=== PATIENT | male | born 1985 | race Caucasian/White ===

== ENCOUNTER 2017-01-04 09:00 | Emergency (ER) | payer SELFPAY ==
[~2017-01-04] VITALS: Ht 198.1 cm; Wt 88.0 kg
[~2017-01-04 09:00] MED LIST: CIPR500T4 PO; HYDR-3533 PO; METR-1 PO; PROT40TA PO
[2017-01-04 09:06] VITALS: BP 120/68; PULSE 55; RESP 18; TEMP 98.5; O2SAT 99
--- NOTE | 2017-01-04 09:58 | PD ---
HPI Chief Complaint: GI Complaint Time Seen by Provider: 09:29 Travel History International Travel<30 days: No Contact w/Intl Traveler<30days: No Traveled to known affect area: No History of Present Illness HPI This is a 31-year-old male who presents to the emergency department with 4 days of vomiting and diarrhea. He said he had a cook out 5 days ago and the following day he woke up with persistent vomiting and loose stools. He says he' s had intermittent specks of blood in his vomit and he had bloody and dark stools. The symptoms of been constant, severe and as of this morning he couldn' t keep anything down. He denies any fevers or chills. His mom is sick with similar symptoms and is here in the ER as well. He has a History of cholecystectomy in the past. He is describing moderate severity epigastric discomfort. PFSH Past Medical History Anxiety: Yes Cancer: No Cardiovascular Problems: Yes (MURMER) Diminished Hearing: No Endocrine: No Genitourinary: No Immune Disorder: No Musculoskeletal: No Neurologic: No Psychiatric: No Reproductive: No Respiratory: No Ulcer: Yes Past Surgical History Abdominal Surgery: Yes (gall bladder removal Sep 09, 2015) Cardiac Surgery: No Cholecystectomy: Yes Ear Surgery: No Eye Surgery: No Genitourinary Surgery: No Gynecologic Surgery: No Oral Surgery: No Thoracic Surgery: No Other Surgery: Yes Social History Alcohol Use: No Tobacco Use: Yes (1 PK EVERY 3 DAYS) Substance Use: No Allergies-Medications (Allergen,Severity, Reaction): Coded Allergies: Phenergan (Unverified Allergy, Severe, Hives, 01/04/17) Ambien (Verified Adverse Reaction, Severe, PARANOID, 01/04/17) Reported Meds & Prescriptions Reported Meds & Active Scripts Active Zofran (Ondansetron HCl) 4 Mg Tab 4 Mg PO Q6HR PRN Review of Systems Except as stated in HPI: all other systems reviewed are Neg Physical Exam Narrative GENERAL:Well appearing, no acute distress SKIN: Focused skin assessment warm and dry. HEAD: Atraumatic. Normocephalic. EYES: Pupils equal and round. No injection or drainage. ENT: Moist mucous membranes NECK: Trachea midline. CARDIOVASCULAR: Regular rate and rhythm. No murmur appreciated. RESPIRATORY: Clear to auscultation. Breath sounds equal bilaterally. GASTROINTESTINAL: Abdomen soft, tender to palpation in the epigastrium with no rebound or guarding. MUSCULOSKELETAL: No obvious deformities. NEUROLOGICAL: Awake and alert. No obvious cranial nerve deficits. Moving all extremities. PSYCHIATRIC: Appropriate mood and affect; insight and judgment normal. Data Data Last Documented VS Vital Signs Date Time Temp Pulse Resp B/P Pulse Ox O2 Delivery O2 Flow Rate FiO2 01/04/17 09:06 98.5 55 18 120/68 99 Orders Complete Blood Count With Diff (01/04/17 09:54) Comprehensive Metabolic Panel (01/04/17 09:54) ^ Insert Iv (01/04/17 09:54) Sodium Chlor 0.9% 1000 Ml Inj (Ns 1000 M (01/04/17 10:00) Ondansetron Inj (Zofran Inj) (01/04/17 10:00) Ketorolac Inj (Toradol Inj) (01/04/17 10:00) Ondansetron Inj (Zofran Inj) (01/04/17 10:15) Lorazepam Inj (Ativan Inj) (01/04/17 10:30) Lipase (01/04/17 10:22) Electrocardiogram (01/04/17 ) Ct Abd/Pel W Iv Contrast(Rout) (01/04/17 ) Iohexol 350 Inj (Omnipaque 350 Inj) (01/04/17 13:12) Labs Laboratory Tests Test 01/04/17 09:45 White Blood Count 15.1 TH/MM3 Red Blood Count 5.43 MIL/MM3 Hemoglobin 16.2 GM/DL Hematocrit 46.9 % Mean Corpuscular Volume 86.4 FL Mean Corpuscular Hemoglobin 29.9 PG Mean Corpuscular Hemoglobin 34.6 % Concent Red Cell Distribution Width 12.9 % Platelet Count 250 TH/MM3 Mean Platelet Volume 9.6 FL Neutrophils (%) (Auto) 74.3 % Lymphocytes (%) (Auto) 19.5 % Monocytes (%) (Auto) 5.8 % Eosinophils (%) (Auto) 0.1 % Basophils (%) (Auto) 0.3 % Neutrophils # (Auto) 11.2 TH/MM3 Lymphocytes # (Auto) 2.9 TH/MM3 Monocytes # (Auto) 0.9 TH/MM3 Eosinophils # (Auto) 0.0 TH/MM3 Basophils # (Auto) 0.0 TH/MM3 CBC Comment DIFF FINAL Differential Comment Sodium Level 140 MEQ/L Potassium Level 3.3 MEQ/L Chloride Level 100 MEQ/L Carbon Dioxide Level 31.0 MEQ/L Anion Gap 9 MEQ/L Blood Urea Nitrogen 22 MG/DL Creatinine 0.95 MG/DL Estimat Glomerular Filtration 94 ML/MIN Rate Random Glucose 92 MG/DL Calcium Level 9.5 MG/DL Total Bilirubin 1.9 MG/DL Aspartate Amino Transf 14 U/L (AST/SGOT) Alanine Aminotransferase 25 U/L (ALT/SGPT) Alkaline Phosphatase 101 U/L Total Protein 7.8 GM/DL Albumin 4.3 GM/DL Lipase 133 U/L MDM Medical Decision Making Medical Screen Exam Complete: Yes Emergency Medical Condition: Yes Interpretation(s) afebrile, no tachycardia, normotensive leukocytosis 74% neutrophils mild hypokalemia total bilirubin 1.9 similar to prior Differential Diagnosis Gastroenteritis, food poisoning, dehydration, electrolyte abnormality, gastric outlet obstruction, pancreatitis Narrative Course This is a 31-year-old male who presents to the emergency department with nausea vomiting and diarrhea ever since he ate barbecue 5 days ago. Labs were obtained which demonstrate a leukocytosis. Electrolytes are reassuring. CT was obtained given the patient's degree of pain in his leukocytosis. Imaging was unremarkable. I suspect the patient has food poisoning. He was discharged with Zofran. He feels much better after antiemetics and IV hydration. Diagnosis Primary Impression: Food poisoning Qualified Code: T62.94XA - Food poisoning, undetermined intent, initial encounter Patient Instructions: General Instructions Med/Other Pt SpecificInfo: Prescription(s) given Scripts Ondansetron (Zofran)4 Mg Tab4 Mg PO Q6HR PRN (NAUSEA OR VOMITING) #10 TAB Ref 0 Prov:Kiana Ruiz MD 01/04/17 Disposition: DISCHARGE HOME Condition: Stable Kiana Ruiz MD Jan 04, 2017 09:58
[2017-01-04] MEDS ORDERED: SODIUM CHLOR 0.9% 1000 ML INJ 1,000 ML IV ONE (10:00)
[2017-01-04] MEDS ORDERED: KETOROLAC TROMETHAMINE 30 MG/ML (IVP) VIAL IV PUSH ONE (10:00)
[2017-01-04] MEDS ORDERED: ONDANSETRON HCL 4 MG/2 ML VIAL IV PUSH ONE (10:00)
[2017-01-04] MEDS ORDERED: ONDANSETRON HCL 4 MG/2 ML VIAL IV ONE (10:15)
[2017-01-04 10:30] LABS: AUTOMATED NEUTROPHIL # 11.2 TH/MM3 (1.8-7.7); BASOPHIL % 0.3 % (0.0-2.0); EOSINOPHIL % 0.1 % (0.0-4.0); HEMATOCRIT 46.9 % (39.0-51.0); HEMO FLAGS DIFF FINAL; LYMPH % 19.5 % (9.0-44.0); LYMPHOCYTE # 2.9 TH/MM3 (1.0-4.8); MEAN CELL VOLUME 86.4 FL (80.0-100.0); MEAN CORPUSCULAR HEMOGLOBIN 29.9 PG (27.0-34.0); MEAN CORPUSCULAR HGB CONC 34.6 % (32.0-36.0); MONO % 5.8 % (0.0-8.0); NEUT % 74.3 % (16.0-70.0); PLATELET COUNT 250 TH/MM3 (150-450); RED BLOOD COUNT 5.43 MIL/MM3 (4.50-5.90); RED CELL DISTRIBUTION WIDTH 12.9 % (11.6-17.2); WHITE BLOOD COUNT 15.1 TH/MM3 (4.0-11.0)
[2017-01-04] MEDS ORDERED: LORazepam 2 MG/ML VIAL IV PUSH ONE (10:30)
[2017-01-04 10:45] LABS: ALT (GPT) 25 U/L (12-78); ANION GAP 9 MEQ/L (5-15); AST (GOT) 14 U/L (15-37); BLOOD UREA NITROGEN 22 MG/DL (7-18); CHLORIDE 100 MEQ/L (98-107); GLOMERULAR FILTRATION RATE 94 ML/MIN (>89); POTASSIUM 3.3 MEQ/L (3.5-5.1); SODIUM (NA) 140 MEQ/L (136-145)
[2017-01-04 10:48] LABS: ALKALINE PHOSPHATASE 101 U/L (45-117); TOTAL BILIRUBIN ADULT 1.9 MG/DL (0.2-1.0)
--- NOTE | 2017-01-04 11:58 | EKG ---
Date Performed: 01/04/2017 Time Performed: 10:29:44 PTAGE: 31 years EKG: ECTOPIC ATRIAL BRADYCARDIA POSSIBLE RIGHT VENTRICULAR CONDUCTION DELAY ABNORMAL RHYTHM ECG PREVIOUS TRACING : 09/14/2015 16.36 Compared to previous tracing, ectopic atrial bradycardia rojas s replaced Sinus rhythm . DOCTOR: Jian Maya Interpretating Date/Time 01/04/2017 11:58:06
[2017-01-04] MEDS ORDERED: IOHEXOL 350 MG/ML 10 ML VIAL (for RAD DIAG) IV ONE (13:12)
--- NOTE | 2017-01-04 13:38 | RADRPT ---
EXAM DATE/TIME: 01/04/2017 13:08 [facility] COMPARISON: CT ABDOMEN & PELVIS W CONTRAST, November 08, 2015, 20:49. INDICATIONS : Nausea, coffe ground emesis, and diarrhea for 2 days IV CONTRAST: 95 cc Omnipaque 350 (iohexol) IV ORAL CONTRAST: No oral contrast ingested. RADIATION DOSE: 5.59 CTDIvol (mGy) MEDICAL HISTORY : Cardiovascular disease. Ulcers. SURGICAL HISTORY : Cholecystectomy. ENCOUNTER: Initial ACUITY: 2 days PAIN SCALE: 4/10 LOCATION: diffuse abdomen TECHNIQUE: Volumetric scanning of the abdomen and pelvis was performed. Using automated exposure control and ad justment of the mA and/or kV according to patient size, radiation dose was kept as low as reasonably achievable to obtain optimal diagnostic quality images. FINDINGS: LOWER LUNGS: The visualized lower lungs are clear. LIVER: Homogeneous density without lesion. There is no dilation of the biliary tree. Clips are seen from pr ior cholecystectomy. SPLEEN: Normal size without lesion. PANCREAS: Within normal limits. KIDNEYS: Normal in size and shape. There is no mass, stone or hydronephrosis. ADRENAL GLANDS: Within normal limits. VASCULAR: There is no aortic aneurysm. BOWEL/MESENTERY: The stomach, small bowel, and colon demonstrate no acute abnormality. There is no free intraperitone al air or fluid. ABDOMINAL WALL: Within normal limits. RETROPERITONEUM: There is no lymphadenopathy. BLADDER: No wall thickening or mass. REPRODUCTIVE: Within normal limits. INGUINAL: There is no lymphadenopathy or hernia. MUSCULOSKELETAL: Within normal limits for patient age. CONCLUSION: Normal examination. Steve Razo MD on January 04, 2017 at 13:30 Board Certified Radiologist. This report was verified electronically.
[2017-01-04] MEDS ORDERED: ZOFR4TAB PO (14:02)
[2017-01-05] MEDS ORDERED: DICY10 PO (08:35)
== END 2017-01-04 14:47 | disposition home or self-care (01) ==
LOC: NEPE 09:00
DX: T62.94XA Toxic effect of unspecified noxious substance eaten as food, undetermined, initial encounter (principal); D72.829 Elevated white blood cell count, unspecified; E87.6 Hypokalemia; F41.9 Anxiety disorder, unspecified; Z72.0 Tobacco use
CPT/HCPCS: 74177; 80053; 83690; 85025; 93005; 96374; 96375; 99285; J1885; J2405; J7030; Q9967

== ENCOUNTER 2017-01-05 06:31 | Emergency (ER) | payer SELFPAY ==
[~2017-01-05] VITALS: Ht 198.1 cm; Wt 90.0 kg
[~2017-01-05 06:31] MED LIST changes: +ZOFR4TAB PO
[2017-01-05 06:37] VITALS: BP 142/87; PULSE 60; RESP 18; TEMP 98.3; O2SAT 97
[2017-01-05] MEDS ORDERED: SODIUM CHLOR 0.9% 1000 ML INJ 1,000 ML IV SCH (06:44)
[2017-01-05] MEDS ORDERED: PANTOPRAZOLE SODIUM 40 MG VIAL IVP ONE (06:45)
[2017-01-05] MEDS ORDERED: SODIUM CHLORIDE 0.9% FLUSH 10 ML FLUSH IV FLUSH PRN (06:45)
[2017-01-05] MEDS ORDERED: ONDANSETRON HCL 4 MG/2 ML VIAL IVP ONE (06:45)
[2017-01-05 06:52] VITALS: O2SAT 100
[2017-01-05 07:00] LABS: AUTOMATED NEUTROPHIL # 8.5 TH/MM3 (1.8-7.7); BASOPHIL % 0.3 % (0.0-2.0); EOSINOPHIL % 0.4 % (0.0-4.0); HEMATOCRIT 43.4 % (39.0-51.0); HEMO FLAGS DIFF FINAL; MEAN CELL VOLUME 85.6 FL (80.0-100.0); MEAN CORPUSCULAR HEMOGLOBIN 30.4 PG (27.0-34.0); MEAN CORPUSCULAR HGB CONC 35.5 % (32.0-36.0); MONO % 8.1 % (0.0-8.0); NEUT % 67.2 % (16.0-70.0); PLATELET COUNT 233 TH/MM3 (150-450); RED BLOOD COUNT 5.07 MIL/MM3 (4.50-5.90); RED CELL DISTRIBUTION WIDTH 13.1 % (11.6-17.2); WHITE BLOOD COUNT 12.6 TH/MM3 (4.0-11.0)
[2017-01-05 07:17] LABS: ANION GAP 11 MEQ/L (5-15); AST (GOT) 11 U/L (15-37); BICARBONATE 26.3 MEQ/L (21.0-32.0); BLOOD UREA NITROGEN 16 MG/DL (7-18); CHLORIDE 100 MEQ/L (98-107); GLOMERULAR FILTRATION RATE 110 ML/MIN (>89); SODIUM (NA) 137 MEQ/L (136-145)
[2017-01-05 07:18] LABS: ALT (GPT) 21 U/L (12-78)
[2017-01-05 07:21] LABS: ALKALINE PHOSPHATASE 88 U/L (45-117); TOTAL BILIRUBIN ADULT 2.7 MG/DL (0.2-1.0)
[2017-01-05] MEDS ORDERED: DICYCLOMINE HCL 20 MG/2 ML VIAL IM ONE (07:30)
--- NOTE | 2017-01-05 07:51 | PD ---
HPI Chief Complaint: Abdominal Pain Time Seen by Provider: 07:22 Travel History International Travel<30 days: No Contact w/Intl Traveler<30days: No Traveled to known affect area: No History of Present Illness HPI 31-year-old male who was seen yesterday for GI symptoms, presents today with worsening nausea vomiting diarrhea. Patient states he thought he had blood in his vomit and had lack coloration to his stool. He denies any previous history of GI bleed. Patient also reports subjective fevers. There is ill contact with his mother having similar symptoms however he states that she improved and has not gotten worse. PFSH Past Medical History Anxiety: Yes Cancer: No Cardiovascular Problems: Yes (BIB) Diminished Hearing: No Endocrine: No Genitourinary: No Immune Disorder: No Musculoskeletal: No Neurologic: No Psychiatric: No Reproductive: No Respiratory: No Ulcer: Yes Tetanus Vaccination: < 5 Years Influenza Vaccination: Yes Past Surgical History Abdominal Surgery: Yes (gall bladder removal Sep 09, 2015) Cardiac Surgery: No Cholecystectomy: Yes Ear Surgery: No Eye Surgery: No Genitourinary Surgery: No Gynecologic Surgery: No Oral Surgery: No Thoracic Surgery: No Other Surgery: Yes Social History Alcohol Use: No Tobacco Use: Yes (1 PK EVERY 3 DAYS) Substance Use: No Allergies-Medications (Allergen,Severity, Reaction): Coded Allergies: Phenergan (Unverified Allergy, Severe, Hives, 01/05/17) Ambien (Verified Adverse Reaction, Severe, PARANOID, 01/05/17) Reported Meds & Prescriptions Reported Meds & Active Scripts Active Bentyl (Dicyclomine HCl) 10 Mg Cap 10 Mg PO TID PRN Zofran (Ondansetron HCl) 4 Mg Tab 4 Mg PO Q6HR PRN Review of Systems Except as stated in HPI: all other systems reviewed are Neg General / Constitutional: Positive: Fever, No: Chills HENT: No: Headaches, Lightheadedness Cardiovascular: No: Chest Pain or Discomfort Respiratory: No: Cough, Shortness of Breath Gastrointestinal: Positive: Nausea, Vomiting, Diarrhea, Abdominal Pain (crampy) Genitourinary: No: Dysuria, Decreased Urinary Output Musculoskeletal: No: Weakness, Pain Neurologic: No: Weakness, Dizziness, Headache, Change in Mentation Physical Exam Narrative GENERAL: Well-nourished, well-developed patient, in no acute respiratory distress. SKIN: Focused skin assessment warm/dry. HEAD: Normocephalic/atraumatic. EYES: No scleral icterus. No injection or drainage. NECK: Supple, trachea midline. No JVD or lymphadenopathy. CARDIOVASCULAR: Regular rate and rhythm without murmurs, gallops, or rubs. RESPIRATORY: Breath sounds equal bilaterally. No accessory muscle use. GASTROINTESTINAL: Abdomen soft, non-tender, nondistended. No rebound or guarding. RECTAL EXAM: No masses or tenderness, stool is brown. Heme-negative on testing. MUSCULOSKELETAL: No cyanosis, or edema. NEUROLOGICAL: Awake and alert. Cranial nerves II through XII intact. Motor grossly within normal limits. Five out of 5 muscle strength in all muscle groups. Normal speech. Data Data Last Documented VS Vital Signs Date Time Temp Pulse Resp B/P Pulse Ox O2 Delivery O2 Flow Rate FiO2 01/05/17 06:52 100 Room Air 01/05/17 06:40 18 01/05/17 06:37 98.3 60 142/87 Orders Complete Blood Count With Diff (01/05/17 06:44) Comprehensive Metabolic Panel (01/05/17 06:44) Lipase (01/05/17 06:44) Iv Access Insert/Monitor (01/05/17 06:44) Ecg Monitoring (01/05/17 06:44) Oximetry (01/05/17 06:44) Ondansetron Inj (Zofran Inj) (01/05/17 06:45) Pantoprazole Inj (Protonix Inj) (01/05/17 06:45) Sodium Chlor 0.9% 1000 Ml Inj (Ns 1000 M (01/05/17 06:44) Sodium Chloride 0.9% Flush (Ns Flush) (01/05/17 06:45) Enteric Path (Stool) (01/05/17 07:22) Dicyclomine Inj (Bentyl Inj) (01/05/17 07:30) Potassium Chloride Eff (K-Lyte Cl Eff) (01/05/17 08:30) Metoclopramide Inj (Reglan Inj) (01/05/17 09:00) Labs Laboratory Tests Test 01/05/17 06:48 White Blood Count 12.6 TH/MM3 Red Blood Count 5.07 MIL/MM3 Hemoglobin 15.4 GM/DL Hematocrit 43.4 % Mean Corpuscular Volume 85.6 FL Mean Corpuscular Hemoglobin 30.4 PG Mean Corpuscular Hemoglobin 35.5 % Concent Red Cell Distribution Width 13.1 % Platelet Count 233 TH/MM3 Mean Platelet Volume 8.9 FL Neutrophils (%) (Auto) 67.2 % Lymphocytes (%) (Auto) 24.0 % Monocytes (%) (Auto) 8.1 % Eosinophils (%) (Auto) 0.4 % Basophils (%) (Auto) 0.3 % Neutrophils # (Auto) 8.5 TH/MM3 Lymphocytes # (Auto) 3.0 TH/MM3 Monocytes # (Auto) 1.0 TH/MM3 Eosinophils # (Auto) 0.0 TH/MM3 Basophils # (Auto) 0.0 TH/MM3 CBC Comment DIFF FINAL Differential Comment Sodium Level 137 MEQ/L Potassium Level 3.0 MEQ/L Chloride Level 100 MEQ/L Carbon Dioxide Level 26.3 MEQ/L Anion Gap 11 MEQ/L Blood Urea Nitrogen 16 MG/DL Creatinine 0.83 MG/DL Estimat Glomerular Filtration 110 ML/MIN Rate Random Glucose 101 MG/DL Calcium Level 9.1 MG/DL Total Bilirubin 2.7 MG/DL Aspartate Amino Transf 11 U/L (AST/SGOT) Alanine Aminotransferase 21 U/L (ALT/SGPT) Alkaline Phosphatase 88 U/L Total Protein 6.8 GM/DL Albumin 4.0 GM/DL Lipase 168 U/L MDM Medical Decision Making Medical Screen Exam Complete: Yes Emergency Medical Condition: Yes Differential Diagnosis Gastroenteritis versus infectious diarrhea versus GI bleed Narrative Course 31-year-old male presents today with complaint of nausea vomiting and reported diarrhea. The patient states he thought he saw blood in his vomit and diarrhea. The patient's white count is slightly elevated however his H&H is stable. Lipase is negative and the rest of his electrolytes are within normal limits except for a potassium of 3.0. He was given potassium effervescent which she vomited. There was no evidence of blood on rectal examination. The patient did have another episode of emesis and was given Reglan. He is able to tolerate by mouth's after the Reglan. He'll be given 20 mEq of potassium tablets since he vomited the effervescent. He is instructed to increase his potassium rich foods i.e. citrus, green leafy vegetables. He is instructed to follow up with primary care doctor if he develops any worsening symptoms. He has a prescription for Zofran. He'll be given another prescription for Bentyl for abnormal spasms. Diagnosis Primary Impression: Nausea, vomiting and diarrhea Additional Impression: Hypokalemia Additional Instructions: [place] diet. Increase potassium rich diet, green leafy vegetables, citrus. Med/Other Pt SpecificInfo: Prescription(s) given Scripts Dicyclomine (Bentyl)10 Mg Cap10 Mg PO TID PRN (CRAMPS) #20 CAP Ref 0 Prov:Ike To MD 01/05/17 Disposition: 01 DISCHARGE HOME Condition: Stable Ike To MD Jan 05, 2017 07:51
[2017-01-05] MEDS ORDERED: POTASSIUM CHLORIDE 25 MEQ EFFERVESCENT TAB PO ONE (08:30)
[2017-01-05] MEDS ORDERED: DICY10 PO (08:35)
[2017-01-05] MEDS ORDERED: METOCLOPRAMIDE HCL 10 MG/2 ML VIAL IV PUSH ONE (09:00)
[2017-01-05] MEDS ORDERED: POTASSIUM CHLORIDE 20 MEQ CONTROLLED RELEASE TAB PO ONE (10:00)
[2017-01-05 11:00] VITALS: BP 124/74
== END 2017-01-05 11:59 | disposition home or self-care (01) ==
LOC: NEPE 06:31
DX: R11.2 Nausea with vomiting, unspecified (principal); R19.7 Diarrhea, unspecified; E87.6 Hypokalemia; F17.210 Nicotine dependence, cigarettes, uncomplicated
CPT/HCPCS: 80053; 83690; 85025; 96361; 96372; 96374; 96375; 99284; C9113; J0500; J2405; J2765; J7030

== ENCOUNTER 2017-04-04 15:39 | Emergency (ER) | payer SELFPAY ==
[~2017-04-04] VITALS: Ht 198.1 cm; Wt 83.0 kg
[~2017-04-04 15:39] MED LIST changes: -CIPR500T4 PO; +DICY10 PO; -HYDR-3533 PO; -METR-1 PO; -PROT40TA PO
[2017-04-04 15:40] VITALS: BP 145/83; PULSE 96; RESP 12; TEMP 98.5; O2SAT 97
--- NOTE | 2017-04-04 16:01 | PD ---
HPI . head pain Chief Complaint: Head Injury Time Seen by Provider: 16:01 Travel History International Travel<30 days: No Contact w/Intl Traveler<30days: No Traveled to known affect area: No History of Present Illness HPI 31-year-old male with no skin past medical history here with complaints of head pain since 3 days ago. Patient tells me that he hit his head on some type of concrete stair type of thing and has experienced head pain ever since. Patient says that he thinks he has a concussion and would like to be checked. He reports sharp head pains and a dull headache. He rates the pain as 7/10 and tells me is located all over his head. There was no loss of consciousness. This incident was witnessed. He denies any confusion. He is not having nausea or vomiting. He denies any visual changes. PFSH Past Medical History Anxiety: Yes Cancer: No Cardiovascular Problems: Yes (MURMER) Diminished Hearing: No Endocrine: No Genitourinary: No Immune Disorder: No Musculoskeletal: No Neurologic: No Psychiatric: No Reproductive: No Respiratory: No Ulcer: Yes Past Surgical History Abdominal Surgery: Yes (gall bladder removal Sep 09, 2015) Cardiac Surgery: No Cholecystectomy: Yes Ear Surgery: No Eye Surgery: No Genitourinary Surgery: No Gynecologic Surgery: No Oral Surgery: No Thoracic Surgery: No Other Surgery: Yes Social History Alcohol Use: No Tobacco Use: Yes (1 PK EVERY 3 DAYS) Substance Use: No Allergies-Medications (Allergen,Severity, Reaction): Coded Allergies: promethazine (Unverified Allergy, Severe, Hives, 04/04/17) zolpidem (Unverified Adverse Reaction, Severe, PARANOID, 04/04/17) Reported Meds & Prescriptions Reported Meds & Active Scripts Active No Active Prescriptions or Reported Medications Review of Systems General / Constitutional: No: Fever Eyes: No: Visual changes HENT: No: Headaches Cardiovascular: No: Chest Pain or Discomfort Respiratory: No: Shortness of Breath Gastrointestinal: No: Abdominal Pain Genitourinary: No: Dysuria Musculoskeletal: No: Pain Skin: No Rash Neurologic: Positive: Headache, No: Weakness Psychiatric: No: Depression Endocrine: No: Polydipsia Hematologic/Lymphatic: No: Easy Bruising Physical Exam Narrative GENERAL: AAO x 3, no acute distress, Well-nourished, well-developed patient. SKIN: Warm and dry. No visible rashes or bruising. No open wounds or lacerations of the scalp and head HEAD: Normocephalic and atraumatic. No bruising or hematomas EYES: No scleral icterus. No injection or drainage. EOM intact, PERRLA ENT: No nasal drainage noted. Mucous membranes pink. Airway patent. NECK: Supple, trachea midline. No JVD. CARDIOVASCULAR: Regular rate and rhythm without murmurs, gallops, or rubs. RESPIRATORY: Breath sounds equal bilaterally. No accessory muscle use. No rhonchi or rales. GASTROINTESTINAL: Visual inspection normal EXTREMITIES: No cyanosis or edema. BACK: No obvious deformity. No CVA tenderness. 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 Sensorimotor function normal PSYCH: AAO x 3, normal affect. Data Data Last Documented VS Vital Signs Date Time Temp Pulse Resp B/P (MAP) Pulse Ox O2 Delivery O2 Flow Rate FiO2 04/04/17 16:03 18 Room Air 04/04/17 15:40 98.5 96 145/83 (103) 97 Orders Orders Ketorolac Inj (Toradol Inj) (04/04/17 16:15) MDM Medical Decision Making Medical Screen Exam Complete: Yes Emergency Medical Condition: Yes Medical Record Reviewed: Yes Differential Diagnosis Concussion, closed head injury, less likely ICH Narrative Course 31-year-old male here with headache and what appears to be possible concussion. I have done an examination. His neuro exam is unremarkable. He does not meet criteria for CT scan of the head per [place] CT rules. I have discussed this with him at length. I recommend some medication here in the emergency department to help with his headache. Patient says he will be more than happy to take Tylenol or ibuprofen at home. He is here because he was noted he has a concussion. Explained to him that imaging will not show this. I advised him if symptoms persist past 7-10 days, he needs to return to the emergency department or follow-up with his primary care provider. Diagnosis Primary Impression: Closed head injury Qualified Codes: S09.90XA - Unspecified injury of head, initial encounter Patient Instructions: Concussion (ED), General Instructions, Head Injury (ED) Additional Instructions: Use Tylenol or Motrin as directed on the package insert for headaches. If your symptoms persist past 7-10 days, follow-up with her primary care provider or go to the nearest emergency department. If your symptoms worsen, go to the nearest emergency department. Scripts No Active Prescriptions or Reported Meds Disposition: 01 DISCHARGE HOME Condition: Stable Fern Kahn Apr 04, 2017 16:01
[2017-04-04] MEDS ORDERED: KETOROLAC TROMETHAMINE 60 MG/2 ML (IM) VIAL IM ONE (16:15)
[2017-04-04 16:41] VITALS: BP 145/83
== END 2017-04-04 16:41 | disposition home or self-care (01) ==
LOC: NEPD 15:39
DX: S09.90XA Unspecified injury of head, initial encounter (principal); F41.9 Anxiety disorder, unspecified; R01.1 Cardiac murmur, unspecified; F17.200 Nicotine dependence, unspecified, uncomplicated; W22.8XXA Striking against or struck by other objects, initial encounter; Z88.8 Allergy status to other drugs, medicaments and biological substances
CPT/HCPCS: 96372; 99284; J1885

== ENCOUNTER 2017-04-04 19:19 | Emergency (ER) | payer SELFPAY ==
[~2017-04-04] VITALS: Ht 198.1 cm; Wt 85.0 kg
[2017-04-04 19:35] VITALS: BP 128/77; PULSE 73; RESP 16; TEMP 98.4; O2SAT 99
[2017-04-04 19:55] LABS: AUTOMATED NEUTROPHIL # 4.6 TH/MM3 (1.8-7.7); BASOPHIL # 0.1 TH/MM3 (0-0.2); BASOPHIL % 0.7 % (0.0-2.0); EOSINOPHIL # 0.3 TH/MM3 (0-0.4); EOSINOPHIL % 3.2 % (0.0-4.0); HEMATOCRIT 43.8 % (39.0-51.0); HEMO FLAGS DIFF FINAL; LYMPH % 36.4 % (9.0-44.0); LYMPHOCYTE # 3.2 TH/MM3 (1.0-4.8); MEAN CORPUSCULAR HEMOGLOBIN 30.5 PG (27.0-34.0); MEAN CORPUSCULAR HGB CONC 34.7 % (32.0-36.0); MONO % 8.2 % (0.0-8.0); NEUT % 51.5 % (16.0-70.0); PLATELET COUNT 259 TH/MM3 (150-450); RED BLOOD COUNT 4.98 MIL/MM3 (4.50-5.90); WHITE BLOOD COUNT 8.9 TH/MM3 (4.0-11.0)
--- NOTE | 2017-04-04 19:55 | PD ---
HPI . suicidal ideation/BA Chief Complaint: Psychiatric Symptoms Time Seen by Provider: 19:54 Travel History International Travel<30 days: No Contact w/Intl Traveler<30days: No Traveled to known affect area: No History of Present Illness HPI 31-year-old male here with complaints of suicidal ideation under Walker act. Patient was actually seen earlier today with reports of closed head injury. At that point he did not tell us about any of these intentions. He tells me that he went home and he received a disturbing phone call from his brother telling him that his mom needed surgery. He also says that some other family issues are going on and once he got home and had to deal with those he decided that he did not live any longer. He had a padded box sewer and planned on cutting himself, however decided not to go through with that. He called the police for assistance. He was brought in under Walker act. PFSH Past Medical History Anxiety: Yes Cancer: No Cardiovascular Problems: Yes (MURMER) Diminished Hearing: No Endocrine: No Genitourinary: No Immune Disorder: No Musculoskeletal: No Neurologic: No Psychiatric: No Reproductive: No Respiratory: No Ulcer: Yes Past Surgical History Abdominal Surgery: Yes (gall bladder removal Sep 09, 2015) Cardiac Surgery: No Cholecystectomy: Yes Ear Surgery: No Eye Surgery: No Genitourinary Surgery: No Gynecologic Surgery: No Oral Surgery: No Thoracic Surgery: No Other Surgery: Yes Social History Alcohol Use: No Tobacco Use: Yes (1 PK EVERY 3 DAYS) Substance Use: No Allergies-Medications (Allergen,Severity, Reaction): Coded Allergies: promethazine (Unverified Allergy, Severe, Hives, 04/04/17) zolpidem (Unverified Adverse Reaction, Severe, PARANOID, 04/04/17) Reported Meds & Prescriptions Reported Meds & Active Scripts Active No Active Prescriptions or Reported Medications Review of Systems General / Constitutional: No: Fever Eyes: No: Visual changes HENT: No: Headaches Cardiovascular: No: Chest Pain or Discomfort Respiratory: No: Shortness of Breath Gastrointestinal: No: Abdominal Pain Genitourinary: No: Dysuria Musculoskeletal: No: Pain Skin: No Rash Neurologic: No: Weakness Psychiatric: Positive: Suicidal Ideations, No: Depression Endocrine: No: Polydipsia Hematologic/Lymphatic: No: Easy Bruising Physical Exam Narrative GENERAL: AAO x 3, no acute distress, Well-nourished, well-developed patient. SKIN: Warm and dry. No visible rashes or bruising. HEAD: Normocephalic and atraumatic. EYES: No scleral icterus. No injection or drainage. EOM intact, PERRLA ENT: No nasal drainage noted. Mucous membranes pink. Airway patent. NECK: Supple, trachea midline. No JVD. CARDIOVASCULAR: Regular rate and rhythm without murmurs, gallops, or rubs. RESPIRATORY: Breath sounds equal bilaterally. No accessory muscle use. No rhonchi or rales. GASTROINTESTINAL: visual inspection normal EXTREMITIES: No cyanosis or edema. BACK: No obvious deformity. No CVA tenderness. NEURO: CN II-12 intact, PSYCH: AAO x 3, normal affect. Data Data Last Documented VS Vital Signs Date Time Temp Pulse Resp B/P (MAP) Pulse Ox O2 Delivery O2 Flow Rate FiO2 04/04/17 20:01 98.8 67 18 118/84 (95) 99 Room Air Orders Orders Complete Blood Count With Diff (04/04/17 19:38) Comprehensive Metabolic Panel (04/04/17 19:38) Psych Screen (04/04/17 19:38) Drug Screen, Random Urine (04/04/17 19:38) Alcohol (Ethanol) (04/04/17 19:38) Salicylates (Aspirin) (04/04/17 19:38) Tylenol (Acetaminophen) (04/04/17 19:38) Labs Laboratory Tests Test 04/04/17 19:41 White Blood Count 8.9 TH/MM3 Red Blood Count 4.98 MIL/MM3 Hemoglobin 15.2 GM/DL Hematocrit 43.8 % Mean Corpuscular Volume 88.0 FL Mean Corpuscular Hemoglobin 30.5 PG Mean Corpuscular Hemoglobin Concent 34.7 % Red Cell Distribution Width 13.0 % Platelet Count 259 TH/MM3 Mean Platelet Volume 7.6 FL Neutrophils (%) (Auto) 51.5 % Lymphocytes (%) (Auto) 36.4 % Monocytes (%) (Auto) 8.2 % Eosinophils (%) (Auto) 3.2 % Basophils (%) (Auto) 0.7 % Neutrophils # (Auto) 4.6 TH/MM3 Lymphocytes # (Auto) 3.2 TH/MM3 Monocytes # (Auto) 0.7 TH/MM3 Eosinophils # (Auto) 0.3 TH/MM3 Basophils # (Auto) 0.1 TH/MM3 CBC Comment DIFF FINAL Differential Comment Blood Urea Nitrogen 14 MG/DL Creatinine 0.90 MG/DL Random Glucose 85 MG/DL Total Protein 7.2 GM/DL Albumin 4.2 GM/DL Calcium Level 9.1 MG/DL Alkaline Phosphatase 85 U/L Aspartate Amino Transf (AST/SGOT) 14 U/L Alanine Aminotransferase (ALT/SGPT) 22 U/L Total Bilirubin 2.1 MG/DL Sodium Level 138 MEQ/L Potassium Level 3.5 MEQ/L Chloride Level 104 MEQ/L Carbon Dioxide Level 25.9 MEQ/L Anion Gap 8 MEQ/L Estimat Glomerular Filtration Rate 100 ML/MIN Salicylates Level LESS THAN 1.7 MG/DL Urine Opiates Screen POS Acetaminophen Level LESS THAN 2.0 MCG/ML Urine Barbiturates Screen NEG Urine Amphetamines Screen NEG Urine Benzodiazepines Screen NEG Urine Cocaine Screen POS Urine Cannabinoids Screen POS Ethyl Alcohol Level LESS THAN 3 MG/DL MDM Medical Decision Making Medical Screen Exam Complete: Yes Emergency Medical Condition: Yes Medical Record Reviewed: Yes Differential Diagnosis suicidal ideation, stress reaction, adjustment disorder Narrative Course 31-year-old male here under Walker act for suicidal ideation. Labs and psych screen have been ordered. If labs are within normal limits, patient will be medically cleared for a psych screen. Laboratory Tests Test 04/04/17 19:41 White Blood Count 8.9 TH/MM3 Red Blood Count 4.98 MIL/MM3 Hemoglobin 15.2 GM/DL Hematocrit 43.8 % Mean Corpuscular Volume 88.0 FL Mean Corpuscular Hemoglobin 30.5 PG Mean Corpuscular Hemoglobin Concent 34.7 % Red Cell Distribution Width 13.0 % Platelet Count 259 TH/MM3 Mean Platelet Volume 7.6 FL Neutrophils (%) (Auto) 51.5 % Lymphocytes (%) (Auto) 36.4 % Monocytes (%) (Auto) 8.2 % Eosinophils (%) (Auto) 3.2 % Basophils (%) (Auto) 0.7 % Neutrophils # (Auto) 4.6 TH/MM3 Lymphocytes # (Auto) 3.2 TH/MM3 Monocytes # (Auto) 0.7 TH/MM3 Eosinophils # (Auto) 0.3 TH/MM3 Basophils # (Auto) 0.1 TH/MM3 CBC Comment DIFF FINAL Differential Comment Blood Urea Nitrogen 14 MG/DL Creatinine 0.90 MG/DL Random Glucose 85 MG/DL Total Protein 7.2 GM/DL Albumin 4.2 GM/DL Calcium Level 9.1 MG/DL Alkaline Phosphatase 85 U/L Aspartate Amino Transf (AST/SGOT) 14 U/L Alanine Aminotransferase (ALT/SGPT) 22 U/L Total Bilirubin 2.1 MG/DL Sodium Level 138 MEQ/L Potassium Level 3.5 MEQ/L Chloride Level 104 MEQ/L Carbon Dioxide Level 25.9 MEQ/L Anion Gap 8 MEQ/L Estimat Glomerular Filtration Rate 100 ML/MIN Salicylates Level LESS THAN 1.7 MG/DL Urine Opiates Screen POS Acetaminophen Level LESS THAN 2.0 MCG/ML Urine Barbiturates Screen NEG Urine Amphetamines Screen NEG Urine Benzodiazepines Screen NEG Urine Cocaine Screen POS Urine Cannabinoids Screen POS Ethyl Alcohol Level LESS THAN 3 MG/DL I have reviewed the patient's labs. His bilirubin is elevated, however prior records indicate that he's had elevation of bilirubin. He has no complaints of abdominal pain. Patient is medically cleared for psych screen. Diagnosis Primary Impression: Suicidal ideation Scripts No Active Prescriptions or Reported Meds Condition: Stable Fern Kahn Apr 04, 2017 19:55
[2017-04-04 20:01] VITALS: BP 118/84; PULSE 67; RESP 18; TEMP 98.8; O2SAT 99
[2017-04-04 20:21] LABS: ALKALINE PHOSPHATASE 85 U/L (45-117); ALT (GPT) 22 U/L (12-78); ANION GAP 8 MEQ/L (5-15); AST (GOT) 14 U/L (15-37); BICARBONATE 25.9 MEQ/L (21.0-32.0); BLOOD UREA NITROGEN 14 MG/DL (7-18); CHLORIDE 104 MEQ/L (98-107); GLOMERULAR FILTRATION RATE 100 ML/MIN (>89); POTASSIUM 3.5 MEQ/L (3.5-5.1); SODIUM (NA) 138 MEQ/L (136-145); TOTAL BILIRUBIN ADULT 2.1 MG/DL (0.2-1.0)
[2017-04-04 20:22] LABS: ACETAMINOPHEN LESS THAN 2.0 MCG/ML (10.0-30.0); ALCOHOL LESS THAN 3 MG/DL (0-5)
[2017-04-05 07:00] VITALS: BP 110/82; PULSE 68; RESP 15; O2SAT 97
[2017-04-05 10:34] VITALS: BP 119/84; PULSE 57; RESP 18; O2SAT 100
[2017-04-05 18:15] VITALS: BP 130/80; PULSE 76; RESP 18; O2SAT 100
[2017-04-05] MEDS ORDERED: ACETAMINOPHEN 325 MG TAB PO ONE (20:15)
[2017-04-05 22:00] VITALS: BP 90/55; PULSE 55; RESP 18; TEMP 98.3; O2SAT 95
--- NOTE | 2017-04-06 00:55 | PD ---
Physical Exam Time Seen by Provider: 00:54 Narrative Please refer to previous providers documentation for details surrounding the patient's current visit Data Data Last Documented VS Vital Signs Date Time Temp Pulse Resp B/P (MAP) Pulse Ox O2 Delivery O2 Flow Rate FiO2 04/05/17 22:00 98.3 55 18 90/55 (67) 95 Room Air Orders Orders Complete Blood Count With Diff (04/04/17 19:38) Comprehensive Metabolic Panel (04/04/17 19:38) Psych Screen (04/04/17 19:38) Drug Screen, Random Urine (04/04/17 19:38) Alcohol (Ethanol) (04/04/17 19:38) Salicylates (Aspirin) (04/04/17 19:38) Tylenol (Acetaminophen) (04/04/17 19:38) Diet Regular Basic (04/05/17 Breakfast) Diet Regular Basic (04/05/17 Lunch) Diet Regular Basic (04/05/17 Dinner) Acetaminophen (Tylenol) (04/05/17 20:15) Diet Regular Basic (04/06/17 Breakfast) Labs Laboratory Tests Test 04/04/17 19:41 White Blood Count 8.9 TH/MM3 Red Blood Count 4.98 MIL/MM3 Hemoglobin 15.2 GM/DL Hematocrit 43.8 % Mean Corpuscular Volume 88.0 FL Mean Corpuscular Hemoglobin 30.5 PG Mean Corpuscular Hemoglobin Concent 34.7 % Red Cell Distribution Width 13.0 % Platelet Count 259 TH/MM3 Mean Platelet Volume 7.6 FL Neutrophils (%) (Auto) 51.5 % Lymphocytes (%) (Auto) 36.4 % Monocytes (%) (Auto) 8.2 % Eosinophils (%) (Auto) 3.2 % Basophils (%) (Auto) 0.7 % Neutrophils # (Auto) 4.6 TH/MM3 Lymphocytes # (Auto) 3.2 TH/MM3 Monocytes # (Auto) 0.7 TH/MM3 Eosinophils # (Auto) 0.3 TH/MM3 Basophils # (Auto) 0.1 TH/MM3 CBC Comment DIFF FINAL Differential Comment Blood Urea Nitrogen 14 MG/DL Creatinine 0.90 MG/DL Random Glucose 85 MG/DL Total Protein 7.2 GM/DL Albumin 4.2 GM/DL Calcium Level 9.1 MG/DL Alkaline Phosphatase 85 U/L Aspartate Amino Transf (AST/SGOT) 14 U/L Alanine Aminotransferase (ALT/SGPT) 22 U/L Total Bilirubin 2.1 MG/DL Sodium Level 138 MEQ/L Potassium Level 3.5 MEQ/L Chloride Level 104 MEQ/L Carbon Dioxide Level 25.9 MEQ/L Anion Gap 8 MEQ/L Estimat Glomerular Filtration Rate 100 ML/MIN Salicylates Level LESS THAN 1.7 MG/DL Urine Opiates Screen POS Acetaminophen Level LESS THAN 2.0 MCG/ML Urine Barbiturates Screen NEG Urine Amphetamines Screen NEG Urine Benzodiazepines Screen NEG Urine Cocaine Screen POS Urine Cannabinoids Screen POS Ethyl Alcohol Level LESS THAN 3 MG/DL MDM Medical Record Reviewed: Yes Supervised Visit with BERHANE: No Narrative Course Patient has been medically cleared and evaluated under psych screen. Act has accepted the patient. They will be transferred at this time. Diagnosis Primary Impression: Suicidal ideation Patient Instructions: General Instructions Departure Forms: Tests/Procedures Additional Instruction: GIVEN PACKET FOR FOLLOW UP WITH SUBSTANCE ABUSE TREATMENT Scripts No Active Prescriptions or Reported Meds Condition: Stable Jessica Joy Apr 06, 2017 00:55
== END 2017-04-06 02:06 ==
LOC: NEPD 19:19 → NEPJ 04-06 02:06
DX: R45.851 Suicidal ideations (principal); F41.9 Anxiety disorder, unspecified; F17.200 Nicotine dependence, unspecified, uncomplicated; Z88.8 Allergy status to other drugs, medicaments and biological substances
CPT/HCPCS: 80053; 80307; 85025; 99284